=== PATIENT | female | born 1950 | race Two or more races ===

== ENCOUNTER 2020-06-19 12:14 | Outpatient (CLI) | payer OTHER | END 2020-06-19 12:59 | disposition home or self-care (01) | LOC: SONOGRAMA 12:14 | PROVIDERS: ATTEND Pathology Anatomic Pathology & Clinical Pathology | DX: E04.1 Nontoxic single thyroid nodule (principal) ==

== ENCOUNTER 2023-01-28 13:15 | Outpatient (CLI) | payer OTHER | END 2023-01-28 13:19 | disposition home or self-care (01) | LOC: SONOGRAMA 13:15 | DX: E04.2 Nontoxic multinodular goiter (principal) ==

== ENCOUNTER 2025-04-15 13:58 | Outpatient (CLI) | payer OTHER | END 2025-04-15 14:10 | disposition home or self-care (01) | LOC: SONOGRAMA 13:58 | PROVIDERS: ATTEND General Practice | DX: E04.1 Nontoxic single thyroid nodule (principal) ==